=== PATIENT | female | born 1970 | race Caucasian/White ===

== ENCOUNTER 2024-12-04 21:14 | Observation (INO) ==
--- NOTE | 2024-12-04 21:48 | EKG ---
Test Reason : CHEST PAIN Blood Pressure : */* mmHG Vent. Rate : 89 BPM Atrial Rate : 89 BPM P-R Int : 148 ms QRS Dur : 78 ms QT Int : 396 ms P-R-T Axes : 34 17 101 degrees QTc Int : 481 ms Normal sinus rhythm Abnormal ECG No previous ECGs available Confirmed by El Mccall MD ([id number]) on 12/05/2024 6:25:51 AM Referred By: Confirmed By: lE Mccall MD
--- NOTE | 2024-12-04 22:03 | DR.SOBA ---
HPI Time Seen Time Seen by Provider: 12/04/24 22:02 Primary Care Physician Primary Care Physician: MONIE FLOOD HPI Comment HPI Comment: HISTORY BELOW. Complaints Chief Complaint Doctors Comments: Patient is 54yr old female in ER with chest pain and SOB since . Chief Complaint:: PT AMBULATORY IN ED WITH C/O CHEST TIGHTNESS WITH TINGLING, SHORTNESS OF BREATH ON HOME O2 @ 2L/NC, PAIN BETWEEN SHOULDER BLADES. STATES SHE FEELS LIKE SHE IS GETTING A COLD. PT STATES SHE HAD HER SECOND DOSE OF CHEMO FOR LUNG CANCER THIS PAST FRIDAY. COVID-19 Coronavirus risk:travel/contact w/high risk person: No Has patient experienced Coronavirus symptoms: No Reviewed Nurses Notes Reviewed: Yes Source History Provided: Patient Mode of Arrival Mode of Arrival: Ambulatory Timing Onset of Chief Complaint: 12/04/24 PMH PMH Past Medical History: Yes Past Medical History: COPD, Diabetes, Dyslipidemia, GERD, Hypothyroidism and Cancer Past Medical History Comment: EMPHYSEMA LUNG CANCER Past Surgical History: Yes Surgical History: Thyroidectomy and Other Past Surgical History Comment: LUNG Family History History of Family Medical Conditions: Yes Family Medical History: Diabetes Mellitus, Cancer, Coronary Artery Disease and Hypertension Social History Does patient currently use any type of tobacco product: No Have you used tobacco products in the last 12 months: Yes Does any household member use tobacco: No Alcohol Use: None Do you use any recreational Drugs:: No Lives With: Family Lives Where: Home Travel Risk Coronavirus risk:travel/contact w/high risk person: No Has patient experienced Coronavirus symptoms: No Infectious screening In the last 2 months have you had wt loss of >10#?: NO Have you had fever, night sweats or hemotysis?: No Have you traveled outside the country in the last 6 months?: No Isolation: Standard PE Vital Signs Vitals: Vital Signs Temperature 97.9 F Pulse Rate 69 Pulse Rate 73 Pulse Rate 87 Pulse Rate 76 Pulse Rate 79 Pulse Rate 79 Pulse Rate 83 Pulse Rate 71 Pulse Rate 77 Pulse Rate 78 Pulse Rate 80 Pulse Rate 93 Pulse Rate 80 Pulse Rate 81 Pulse Rate 86 Pulse Rate 83 Pulse Rate 86 Pulse Rate 86 Pulse Rate 88 Pulse Rate 88 Pulse Rate 92 Pulse Rate 98 Pulse Rate 99 Pulse Rate 96 Respiratory Rate 11 Respiratory Rate 23 Respiratory Rate 26 Respiratory Rate 33 Respiratory Rate 22 Respiratory Rate 32 Respiratory Rate 21 Respiratory Rate 15 Respiratory Rate 18 Respiratory Rate 16 Respiratory Rate 23 Respiratory Rate 40 Respiratory Rate 18 Respiratory Rate 16 Respiratory Rate 24 Respiratory Rate 13 Respiratory Rate 16 Respiratory Rate 28 Respiratory Rate 21 Respiratory Rate 20 Respiratory Rate 20 Respiratory Rate 17 Respiratory Rate 21 Respiratory Rate 20 Blood Pressure 108/62 Blood Pressure 113/74 Blood Pressure 101/64 Blood Pressure 101/64 Blood Pressure 101/64 Blood Pressure 108/60 Blood Pressure 106/66 Blood Pressure 106/66 Blood Pressure 106/66 Blood Pressure 97/67 Blood Pressure 116/65 O2 Sat by Pulse Oximetry 100 O2 Sat by Pulse Oximetry 99 O2 Sat by Pulse Oximetry 100 O2 Sat by Pulse Oximetry 100 O2 Sat by Pulse Oximetry 99 O2 Sat by Pulse Oximetry 100 O2 Sat by Pulse Oximetry 100 O2 Sat by Pulse Oximetry 99 O2 Sat by Pulse Oximetry 99 O2 Sat by Pulse Oximetry 97 O2 Sat by Pulse Oximetry 99 O2 Sat by Pulse Oximetry 93 O2 Sat by Pulse Oximetry 100 O2 Sat by Pulse Oximetry 99 O2 Sat by Pulse Oximetry 100 O2 Sat by Pulse Oximetry 99 O2 Sat by Pulse Oximetry 99 O2 Sat by Pulse Oximetry 99 O2 Sat by Pulse Oximetry 99 O2 Sat by Pulse Oximetry 99 O2 Sat by Pulse Oximetry 99 O2 Sat by Pulse Oximetry 98 O2 Sat by Pulse Oximetry 98 O2 Sat by Pulse Oximetry 97 ROR Labs Reviewed 12/04/24 21:50 12/04/24 21:50 Laboratory: WBC 7.0 X10^3/uL (3.6-10.0) 12/04/24 21:50 RBC 4.33 X10^6/uL (3.5-5.4) 12/04/24 21:50 Hgb 13.4 g/dL (12.0-16.0) 12/04/24 21:50 Hct 39.2 % (36.0-47.0) 12/04/24 21:50 MCV 90.4 fL (80.0-100.0) 12/04/24 21:50 MCH 31.0 pg (27.0-34.0) 12/04/24 21:50 MCHC 34.3 g/dL (33.0-35.0) 12/04/24 21:50 RDW 13.9 % (11.6-16.5) 12/04/24 21:50 Plt Count 193 X10^3/uL (150.0-450.0) 12/04/24 21:50 MPV 8.6 fL (7.4-11.0) 12/04/24 21:50 Neut % (Auto) 75.3 % (42.0-75.0) H 12/04/24 21:50 Lymph % (Auto) 22.7 % (21.0-51.0) 12/04/24 21:50 [place] % (Auto) 1.1 % (0.0-13.0) 12/04/24 21:50 Eos % (Auto) 0.3 % (0.9-2.9) L 12/04/24 21:50 Baso % (Auto) 0.6 % (0.2-1.0) 12/04/24 21:50 Neut # (Auto) 5.2 x10^3/uL (2.2-4.8) H 12/04/24 21:50 Lymph # (Auto) 1.6 X10^3/uL (1.3-2.9) 12/04/24 21:50 [place] # (Auto) 0.1 x10^3/uL (0.3-0.8) L 12/04/24 21:50 Eos # (Auto) 0.0 x10^3/uL (0.0-0.2) 12/04/24 21:50 Baso # (Auto) 0.0 X10^3/uL (0.0-0.1) 12/04/24 21:50 Absolute Nucleated RBC 0.1 /100WBC 12/04/24 21:50 PT 11.9 SECONDS (11.8-14.3) 12/04/24 21:50 INR Target Range - 12/04/24 21:50 INR 0.87 (0.8-1.3) 12/04/24 21:50 APTT 22.2 SECONDS (22.9-36.5) L 12/04/24 21:50 PTT Comment - 12/04/24 21:50 D-Dimer 1.75 ug/ml (0.0-0.57) H 12/04/24 21:50 Sodium 137 mmol/L (136-145) 12/04/24 21:50 Corrected Sodium 138 mmol/L (136-145) 12/04/24 21:50 Potassium 3.0 mmol/L (3.5-5.1) L 12/04/24 21:50 Chloride 96 mmol/L (98-107) L 12/04/24 21:50 Carbon Dioxide 35.7 mmol/L (21-32) H 12/04/24 21:50 BUN 18 mg/dL (7-18) 12/04/24 21:50 Creatinine 1.18 mg/dL (0.55-1.02) H 12/04/24 21:50 Est GFR (MDRD) Af Amer > 60 (>60) 12/04/24 21:50 Est GFR (MDRD) Non-Af 50 (>60) L 12/04/24 21:50 Glucose 129 mg/dL (65-99) H 12/04/24 21:50 Calcium 7.5 mg/dL (8.5-10.1) L 12/04/24 21:50 Corrected Calcium TNP 12/04/24 21:50 Total Bilirubin 0.50 mg/dL (0.2-1.0) 12/04/24 21:50 AST 25 Units/L (15-37) 12/04/24 21:50 ALT 30 Units/L (12-78) 12/04/24 21:50 Alkaline Phosphatase 103 Units/L (46-116) 12/04/24 21:50 B-Natriuretic Peptide 18.3 pg/mL (0-79) 12/04/24 21:50 Total Protein 9.4 g/dL (6.4-8.2) H 12/04/24 21:50 Albumin 4.0 g/dL (3.4-5.0) 12/04/24 21:50 Globulin 5.4 g/dL (2.5-4.5) H 12/04/24 21:50 Albumin/Globulin Ratio 0.7 Ratio (1.1-2.1) L 12/04/24 21:50 SARS-CoV-2 (PCR) Negative (NEGATIVE) 12/04/24 21:36 Influenza Type A (PCR) Negative (NEGATIVE) 12/04/24 21:36 Influenza Type B (PCR) Negative (NEGATIVE) 12/04/24 21:36 RSV (PCR) Negative (NEGATIVE) 12/04/24 21:36 Opioid Opioid Risk Tool Age (Hany box if 16-45): No History of Preadolescent Sexual Abuse: No Total: 0 Total Score Risk Category: Low Risk Copyright: [facility] predicting aberrant behaviors Discharge Plan Diagnosis Discharge Problem: Pulmonary embolism, SOB (shortness of breath), Hypokalemia, Lung cancer Discharge Plan Patient Disposition: 01 HOME, SELF-CARE Condition: Stable Prescriptions: No Action furosemide [Lasix] 40 mg Tablet 40 mg PO QAM albuterol sulfate 0.63 mg/3 mL Solution For Nebulization 0.63 mg INHALATION Q4H PRN ondansetron HCl [Zofran] 4 mg Tablet 4 mg PO Q6H PRN levothyroxine [Synthroid] 100 mcg Tablet 100 mcg PO QDAY gabapentin 300 mg Capsule 300 mg PO BID folic acid 1 mg Tablet 1 mg PO QDAY albuterol sulfate 90 mcg/actuation Hfa Aerosol Inhaler 2 puff INHALATION Q4-6H PRN metformin 500 mg Tablet Extended Release 24 Hr 500 mg PO QDAY rosuvastatin [Crestor] 20 mg Tablet 20 mg PO QDAY pregabalin 75 mg Capsule 75 mg PO BID Trelegy Ellipta 100-62.5-25 mcg Blister With Device 1 inh INHALATION QDAY Health Concerns: Post Hospitalization: new medications and changes needed to prevent readmission or further decline. Pt educated and given instructions on all concerns. Plan of Treatment: Continue with present treatment and follow up plan. Pt is to keep follow up appointment as instructed and take medications as ordered. Orders to Discharge Patient Discharge Orders: Transfer (Routine); Ordered 12/05/24 Ordered By: AGGIE WIGGINS Follow ups/Referrals Follow ups/Referrals: Monie Flood [Primary Care Provider, Unknown] - 3 days Instructions Stand Alone Forms: Find Help Web Site, Post Hospital Follow Up Care Print Language: SPANISH
[2024-12-04 22:34] LABS: MEAN PLATELET VOLUME 8.6 fL (7.4-11.0); RED CELL DISTRIBUTION WIDTH 13.9 % (11.6-16.5)
[2024-12-04 22:44] LABS: COR NA(FOR HYPERGLY) 138 mmol/L (136-145); CREATININE 1.18 mg/dL (0.55-1.02); eGFR NON BLACK RACES 50 (>60)
[2024-12-04] MEDS: MORPHINE SULFATE INJ 4 MG IVP ONE (22:51)
[2024-12-04] MEDS: ZOFRAN INJ 4 MG VIAL IVP ONE (22:52)
--- NOTE | 2024-12-05 00:46 | CT ---
EXAM: CT ANGIOGRAM CHEST WITH CONTRAST HISTORY: Chest Tightness with elevated D-Dimer; PARTIAL LUNG REMOVED-LUNG CA, TUBAL, ORTHO, THYROID, COPD, DM, . COMPARISON: None. TECHNIQUE: Axial CT images were obtained through the chest after the intravenous administration of contrast. Coronal and sagittal reformatted images were included. MIP images were also performed. Informed written consent was obtained from the patient prior to contrast administration. All CT scans at this facility use dose modulation, iterative reconstruction, and/or weight based dosing when appropriate to reduce radiation dose to as low as reasonably achievable. FINDINGS: VASCULAR FINDINGS: Aorta is normal in course and caliber without evidence of aneurysm, dissection, or other acute pathology. Mild atherosclerotic disease is present. Positive for pulmonary embolism with small amount of occlusive thrombus in the distal subsegmental branch of the right lower lobe. HEART: Heart size is normal. SUPPORT DEVICES: None LYMPH NODES: No pathologically enlarged nodes. LUNGS AND PLEURA: Small left pleural effusion. AIRWAYS: Normal UPPER ABDOMEN: Normal BONES: Normal IMPRESSION: 1. Positive for pulmonary embolism with small amount of occlusive thrombus in the distal subsegmental branch of the right lower lobe. 2. CTA chest demonstrates mild atherosclerotic disease thoracic aorta without aneurysm or dissection. 3. Small left pleural effusion. THIS IS AN ELECTRONICALLY VERIFIED FINAL REPORT 12/05/2024 12:43 AM - Electronically signed by Sony Simon MD
[2024-12-05] MEDS: K-DUR TAB 20 MEQ PO ONE ×2 (01:38→06:49)
[2024-12-05 01:49] LABS: INR 0.87 (0.8-1.3)
[2024-12-05] MEDS: HEPARIN SODIUM IN D5W 25,000 UNITS/500 ML BAG IV PRN ×2 (02:27→23:30)
[2024-12-05] MEDS: HEPARIN SODIUM INJ 5000 UNITS IVP ONE ×3 (02:29→23:40)
[2024-12-05] MEDS: NS 1,000 ML IV 1,000 ML IV SCH (03:00)
[2024-12-05 04:08] VITALS: BMI 40.9
[2024-12-05] MEDS: ZOFRAN INJ 4 MG VIAL IVP PRN (04:36)
[2024-12-05] MEDS ORDERED: NovoLIN R (or HumuLIN R) SUBCUT PRN (05:10)
[2024-12-05 05:37] LABS: MEAN PLATELET VOLUME 8.3 fL (7.4-11.0); RED CELL DISTRIBUTION WIDTH 13.9 % (11.6-16.5)
[2024-12-05 05:48] LABS: COR NA(FOR HYPERGLY) 138 mmol/L (136-145); CREATININE 1.03 mg/dL (0.55-1.02); eGFR NON BLACK RACES 59 (>60)
[2024-12-05 06:22] LABS: INR 0.98 (0.8-1.3)
[2024-12-05] MEDS: NS 100 ML IV 100 ML ONE (06:48)
[2024-12-05] MEDS: OMNIPAQUE 350 mg/mL 100 mL BTL 100 ML ONE (06:49)
[2024-12-05] MEDS: HEPARIN SODIUM INJ 5000 UNITS ONE (06:49)
[2024-12-05] MEDS: HEPARIN SODIUM IN D5W 25,000 UNITS/500 ML BAG ONE (06:49)
[2024-12-05] MEDS ORDERED: HEPARIN SODIUM INJ 5000 UNITS ONE (06:53)
[2024-12-05] MEDS: CONSULT PHARMACY - POTASSIUM & MAGNESIUM XX SCH (07:12)
--- NOTE | 2024-12-05 07:21 | RAD ---
EXAM: CHEST HISTORY: CHEST PAIN; COMPARISON: None. TECHNIQUE: Frontal view of the chest was submitted for interpretation. FINDINGS: Right-sided Port-A-Cath. The cardiomediastinal silhouette is within normal limits. Lungs show likely trace left pleural effusion. IMPRESSION: Likely left pleural effusion. THIS IS AN ELECTRONICALLY VERIFIED FINAL REPORT 12/05/2024 7:17 AM - Electronically signed by Álvaro Avalos MD
[2024-12-05] MEDS: K-DUR TAB 20 MEQ PO SCH (08:04)
[2024-12-05] MEDS: MAG-OX TAB PO SCH (08:05)
[2024-12-05] MEDS: POTASSIUM CHLORIDE LIQ PO ONE (08:29)
[2024-12-05] MEDS: FOLIC ACID TAB 1 MG PO SCH (09:39)
[2024-12-05] MEDS: XARELTO PO SCH (09:39)
[2024-12-05] MEDS: LASIX PO SCH (09:39)
--- NOTE | 2024-12-05 10:19 | EKG ---
Test Reason : chest tightness Blood Pressure : */* mmHG Vent. Rate : 74 BPM Atrial Rate : 74 BPM P-R Int : 146 ms QRS Dur : 78 ms QT Int : 430 ms P-R-T Axes : 35 22 72 degrees QTc Int : 477 ms Normal sinus rhythm Prolonged QT Abnormal ECG When compared with ECG of 04-DEC-2024 21:47, T wave inversion more evident in Anterolateral leads Confirmed by El Mccall MD ([id number]) on 12/05/2024 6:27:48 PM Referred By: Confirmed By: El Mccall MD
[2024-12-05] MEDS ORDERED: MORPHINE SULFATE INJ 2 MG INJ ONE (10:56)
[2024-12-05] MEDS: MORPHINE SULFATE INJ 2 MG INJ IVP PRN (11:04)
[2024-12-05 13:16] LABS: INR 1.37 (0.8-1.3)
[2024-12-05] MEDS: MAALOX or MYLANTA PO PRN (13:43)
--- NOTE | 2024-12-05 17:06 | DR.H&P ---
H&P History & Physical for Day of: H&P Date: 12/05/24 Chief Complaint Chief Complaint: Chest pain History of Present Illness History of Present Illness: Patient presented to the ER with worsening dyspnea and chest pain. Does have a history of chronic respiratory failure secondary to COPD and lung cancer. Has follow-up with oncology next week. ER workup positive for pulmonary embolus. Started on heparin drip and admitted to the floor. She has done well overnight. Initially thought that she would be able to discharge home on oral anticoagulation but unable to due to insurance expiring a couple of days ago. Still easily winded with chest tightness and pain on going to the restroom. Cardiac workup has been negative to date. ROS: Positive for dyspnea, chest tightness, dizziness on standing. No fever, chills, cough, hemoptysis, or syncope 12 point ROS otherwise negative. PE: Well-developed, well-nourished female in no acute distress. Hearing intact conversation, head NCAT, EOMI. Cervical ROM full. Heart regular rate and rhythm, lungs diminished but, bowel sounds present. Belly is soft, nontender, nondistended. Able to move all extremities equally well with no edema. Mood and affect are appropriate. Skin color and turgor are appropriate. Past Medical History Past Medical History: COPD Past Surgical History Surgical History: Ortho Surgery Family History Family Medical History: Diabetes Mellitus, Cancer and Hypertension Social History Does patient currently use any type of tobacco product: No Have you used tobacco products in the last 12 months: Yes Does any household member use tobacco: No Alcohol Use: None Drug Use: None Medications Home Medications: Home Medications Medication Instructions Recorded Confirmed Type albuterol sulfate 0.63 mg/3 mL 0.63 mg inhalation Q4H PRN 12/04/24 12/04/24 History solution for nebulization albuterol sulfate 90 mcg/actuation 2 puff inhalation Q 4-6H PRN 12/04/24 12/04/24 History aerosol inhaler fluticasone fur. 100 mcg-umeclid 1 inh inhalation QDAY 12/04/24 12/04/24 History 62.5 mcg-vilant 25 mcg inhalat.powder (Trelegy Ellipta) folic acid 1 mg tablet 1 mg PO QDAY 12/04/24 History furosemide 40 mg tablet (Lasix) 40 mg PO QAM 12/04/24 12/04/24 History gabapentin 300 mg capsule 300 mg PO BID 12/04/2412/04 History levothyroxine 100 mcg tablet 100 mcg PO QDAY 12/04/24 12/04/24 History (Synthroid) metformin 500 mg tablet,extended 500 mg PO QDAY 12/04/24 History release 24 hr ondansetron HCl 4 mg tablet 4 mg PO Q6H PRN 12/04/24 0 12/04/24 History pregabalin 75 mg capsule 75 mg PO BID 12/04/24 History rosuvastatin 20 mg tablet (Crestor) 20 mg PO QDAY 10/2412/04/24 History Allergies Allergies Allergy/AdvReac Type Severity Reaction Status Date / Time No Known Drug Allergies Allergy Verified 12/04/24 21:24 Labs 12/05/24 05:21 12/05/24 05:21 Labs: Laboratory WBC 5.6 X10^3/uL (3.6-10.0) 12/05/24 05:21 RBC 3.98 X10^6/uL (3.5-5.4) 12/05/24 05:21 Hgb 12.4 g/dL (12.0-16.0) 12/05/24 05:21 Hct 35.9 % (36.0-47.0) L 12/05/24 05:21 MCV 90.1 fL (80.0-100.0) 12/05/24 05:21 MCH 31.2 pg (27.0-34.0) 12/05/24 05:21 MCHC 34.7 g/dL (33.0-35.0) 12/05/24 05:21 RDW 13.9 % (11.6-16.5) 12/05/24 05:21 Plt Count 164 X10^3/uL (150.0-450.0) 12/05/24 05:21 MPV 8.3 fL (7.4-11.0) 12/05/24 05:21 Neut % (Auto) 69.8 % (42.0-75.0) 12/05/24 05:21 Lymph % (Auto) 27.5 % (21.0-51.0) 12/05/24 05:21 [place] % (Auto) 1.4 % (0.0-13.0) 12/05/24 05:21 Eos % (Auto) 0.5 % (0.9-2.9) L 12/05/24 05:21 Baso % (Auto) 0.8 % (0.2-1.0) 12/05/24 05:21 Neut # (Auto) 3.9 x10^3/uL (2.2-4.8) 12/05/24 05:21 Lymph # (Auto) 1.5 X10^3/uL (1.3-2.9) 12/05/24 05:21 [place] # (Auto) 0.1 x10^3/uL (0.3-0.8) L 12/05/24 05:21 Eos # (Auto) 0.0 x10^3/uL (0.0-0.2) 12/05/24 05:21 Baso # (Auto) 0.0 X10^3/uL (0.0-0.1) 12/05/24 05:21 Absolute Nucleated RBC 0.2 /100WBC 12/05/24 05:21 PT 17.0 SECONDS (11.8-14.3) 12/05/24 12:59 INR Target Range - 12/05/24 12:59 INR 1.37 (0.8-1.3) H 12/05/24 12:59 APTT 116.4 SECONDS (22.9-36.5) H 12/05/24 12:59 PTT Comment - 12/05/24 12:59 D-Dimer 1.75 ug/ml (0.0-0.57) H 12/04/24 21:50 Sodium 138 mmol/L (136-145) 12/05/24 05:21 Corrected Sodium 138 mmol/L (136-145) 12/05/24 05:21 Potassium 3.4 mmol/L (3.5-5.1) L 12/05/24 05:21 Chloride 97 mmol/L (98-107) L 12/05/24 05:21 Carbon Dioxide 36.4 mmol/L (21-32) H 12/05/24 05:21 BUN 15 mg/dL (7-18) 12/05/24 05:21 Creatinine 1.03 mg/dL (0.55-1.02) H 12/05/24 05:21 Est GFR (MDRD) Af Amer > 60 (>60) 12/05/24 05:21 Est GFR (MDRD) Non-Af 59 (>60) 12/05/24 05:21 Glucose 120 mg/dL (65-99) H 12/05/24 05:21 POC Glucose (mg/dL) 106 mg/dL (65-99) H 12/05/24 16:28 Calcium 7.6 mg/dL (8.5-10.1) L 12/05/24 05:21 Corrected Calcium TNP 12/05/24 05:21 Magnesium 1.8 mg/dL (2.0-2.9) L 12/05/24 05:21 Total Bilirubin 0.70 mg/dL (0.2-1.0) 12/05/24 05:21 AST 25 Units/L (15-37) 12/05/24 05:21 ALT 26 Units/L (12-78) 12/05/24 05:21 Alkaline Phosphatase 97 Units/L (46-116) 12/05/24 05:21 Creatine Kinase 47 Units/L (26-192) 12/05/24 10:23 Troponin I High Sens 6.3 ng/L (4.0-60.0) 12/05/24 10:23 B-Natriuretic Peptide 18.3 pg/mL (0-79) 12/04/24 21:50 Total Protein 8.6 g/dL (6.4-8.2) H 12/05/24 05:21 Albumin 3.7 g/dL (3.4-5.0) 12/05/24 05:21 Globulin 4.9 g/dL (2.5-4.5) H 12/05/24 05:21 Albumin/Globulin Ratio 0.8 Ratio (1.1-2.1) L 12/05/24 05:21 SARS-CoV-2 (PCR) Negative (NEGATIVE) 12/04/24 21:36 Influenza Type A (PCR) Negative (NEGATIVE) 12/04/24 21:36 Influenza Type B (PCR) Negative (NEGATIVE) 12/04/24 21:36 RSV (PCR) Negative (NEGATIVE) 12/04/24 21:36 Physical Exam Vital Signs: Vital Signs Temperature 98.0 F Temperature 97.7 F Pulse Rate [Right Brachial] 75 Pulse Rate [Right Brachial] 87 Pulse Rate [Right Brachial] 77 Pulse Rate [Right Brachial] 83 Pulse Rate [Right Brachial] 79 Pulse Rate [Right Brachial] 76 Pulse Rate [Right Brachial] 80 Pulse Rate [Right Brachial] 73 Respiratory Rate 12 Respiratory Rate 18 Respiratory Rate 12 Respiratory Rate 20 Respiratory Rate 16 Respiratory Rate 20 Respiratory Rate 20 Respiratory Rate 14 Respiratory Rate 10 Respiratory Rate 10 Blood Pressure [Right Arm] 103/75 Blood Pressure [Right Arm] 115/71 Blood Pressure [Right Arm] 118/66 Blood Pressure [Right Arm] 110/62 Blood Pressure [Right Arm] 114/76 Blood Pressure [Right Arm] 101/63 Blood Pressure [Right Arm] 115/69 Blood Pressure [Right Arm] 113/77 O2 Sat by Pulse Oximetry 99 O2 Sat by Pulse Oximetry 99 O2 Sat by Pulse Oximetry 99 O2 Sat by Pulse Oximetry 100 O2 Sat by Pulse Oximetry 99 O2 Sat by Pulse Oximetry 99 O2 Sat by Pulse Oximetry 99 O2 Sat by Pulse Oximetry 100 Assessment/Plan (1) Pulmonary embolism: Qualifiers: Pulmonary embolism type: single subsegmental (without acute cor pulmonale) Qualified Code(s): I26.93 - Single subsegmental thrombotic pulmonary embolism without acute cor pulmonale Narrative Support Text: Continue heparin drip. Will plan on starting Xarelto or Eliquis orally. Will defer to hematology as an outpatient to further define treatment and treatment length. Status: Acute (2) Lung cancer: Qualifiers: Laterality: unspecified laterality Lung location: unspecified part of lung Qualified Code(s): C34.90 - Malignant neoplasm of unspecified part of unspecified bronchus or lung Narrative Support Text: Defer to oncology for outpatient treatment Status: Acute (3) Tobacco user: Narrative Support Text: Cessation recommended. Status: Acute (4) Hypokalemia: Narrative Support Text: Replete per protocol Status: Acute (5) Type 2 diabetes mellitus with diabetic polyneuropathy: Qualifiers: Diabetes mellitus terminal manager insulin use: without terminal manager use Q ualified Code(s): E11.42 - Type 2 diabetes mellitus with diabetic polyneuropathy Narrative Support Text: Continue home meds. SSI coverage here. Status: Acute (6) Mixed hyperlipidemia: Narrative Support Text: Continue Crestor Status: Acute (7) Simple chronic bronchitis: Narrative Support Text: Trelegy from home if she can get it here, otherwise DuoNebs as needed Status: Acute
[2024-12-05] MEDS: SNACK - Diabetic Appropriate PO SCH (20:26)
[2024-12-05] MEDS: DUONEB 0.5 MG/3 MG (3 mL) NEB PRN (21:44)
[2024-12-05] MEDS: IPRATROPIUM BROMIDE 42 MCG/SPRAY ENOSTRIL SCH (22:00)
[2024-12-05] MEDS: FLONASE NASAL SPRAY ENOSTRIL SCH (22:34)
[2024-12-06 05:52] LABS: MEAN PLATELET VOLUME 8.7 fL (7.4-11.0); RED CELL DISTRIBUTION WIDTH 14.0 % (11.6-16.5)
[2024-12-06 06:00] LABS: COR CA(FOR HYPOALB) 7.8 mg/dL (8.5-10.1); CREATININE 0.97 mg/dL (0.55-1.02); eGFR NON BLACK RACES > 60 (>60)
[2024-12-06 08:08] VITALS: BP 106/64; RESP 27; TEMP 97.8
[2024-12-06 08:38] VITALS: PULSE 77; O2SAT 99
[2024-12-06] MEDS: ELIQUIS PO SCH (09:56)
== END 2024-12-06 11:15 | disposition home or self-care (01) ==
LOC: ER 21:14 → INTOOBSV 12-05 02:08 → MED/SURG 12-05 02:08
PROVIDERS: ADMIT Family Medicine; ATTEND Family Medicine
DX: I26.93 Single subsegmental thrombotic pulmonary embolism without acute cor pulmonale; E87.6 Hypokalemia; Z60.8 Other problems related to social environment; J44.0 Chronic obstructive pulmonary disease with (acute) lower respiratory infection; R42 Dizziness and giddiness; E11.65 Type 2 diabetes mellitus with hyperglycemia; R07.89 Other chest pain; E83.51 Hypocalcemia; E78.2 Mixed hyperlipidemia; R79.1 Abnormal coagulation profile; R94.4 Abnormal results of kidney function studies; R06.02 Shortness of breath; C34.90 Malignant neoplasm of unspecified part of unspecified bronchus or lung; Z92.21 Personal history of antineoplastic chemotherapy; J20.8 Acute bronchitis due to other specified organisms; Z99.81 Dependence on supplemental oxygen; R13.11 Dysphagia, oral phase; E83.42 Hypomagnesemia; R94.31 Abnormal electrocardiogram [ECG] [EKG]; J44.9 Chronic obstructive pulmonary disease, unspecified; Z03.818 Encounter for observation for suspected exposure to other biological agents ruled out; K21.9 Gastro-esophageal reflux disease without esophagitis; E03.8 Other specified hypothyroidism